=== PATIENT | male | born 1990 | race Caucasian/White ===

== ENCOUNTER → 2020-05-02 | Outpatient (CLI) | payer BC ==
--- NOTE | 2020-05-02 13:58 | US ---
EXAMINATION TYPE: US scrotum with doppler. DATE OF EXAM: 05/02/2020 COMPARISON: NONE CLINICAL HISTORY: 30-year-old male Testicular Pain N50.811. Patient states right scrotal pain that ca me out of nowhere. No injury. No swelling or redness. TECHNIQUE: Grayscale and color Doppler Duplex imaging performed of the scrotum. FINDINGS: EXAM MEASUREMENTS: TESTICLES: Right Testicle: 3.4 x 3.8 x 2.4 cm Left Testicle: 3.9 x 3.0 x 2.5 cm EPIDIDYMIS HEAD: Right Epididymis: 0.9 x 0.7 x 0.5 cm Left Epididymis: 0.9 x 0.9 x 0.7 cm Doppler performed to assess for testicular vascularity; good bilateral color flow and waveforms are s een. There is no evidence of testicular torsion. Presence of hydroceles: Small bilaterally, right greater than left. Presence of varicoceles: Left IMPRESSION: 1. No sonographic evidence for testicular torsion or epididymoorchitis. 2. Small bilateral hydroceles, right greater than left. 3. Additionally, there is a left-sided varicocele.
== END | disposition home or self-care (01) ==
LOC: RADUSWWP 11:44
PROVIDERS: ATTEND Family Medicine
DX: N43.3 Hydrocele, unspecified (principal); I86.1 Scrotal varices
CPT/HCPCS: 76870; 93975